=== PATIENT | female | born 1995 | race Hispanic/Latino ===

== ENCOUNTER 2017-02-19 22:57 | Emergency (ER) | payer SELFPAY ==
[2017-02-19] MEDS ORDERED: DELTASONE ONE (23:26)
[2017-02-19] MEDS ORDERED: PEPCID ONE (23:27)
[2017-02-19] MEDS ORDERED: BENADRYL PO ONE (23:27)
[2017-02-19] MEDS ORDERED: BENADRYL IV ONE (23:44)
[2017-02-19] MEDS ORDERED: PEPCID IV ONE (23:44)
[2017-02-19] MEDS ORDERED: NACL 0.9% 1000 ML 1,000 ML IV ONE (23:45)
[2017-02-20] MEDS ORDERED: ZOFRAN ONE
[2017-02-20] MEDS ORDERED: ZOFRAN IV ONE (00:02)
[2017-02-20] MEDS ORDERED: MOTRIN PO ONE (00:12)
--- NOTE | 2017-02-20 00:16 | Emergency Department Report ---
HPI - General Chief Complaint: Extremity Injury, Upper Time Seen by Provider: 02/19/17 23:55 - HPI HPI: The patient's 21-year-old female presents for evaluation of pain to the back of the right hand for the past 2 hours prior to my evaluation. 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 She is employed by [employer]. She states that since the incident she has experienced constant pain to the dorsal aspect of the right hand, burning in quality, 3/10 in severity, worse with touching of the back of the right hand. She also reports associated mild redness to the back of the hand. She denies fever, trauma or puncture wound to the hand, paresthesia, motor deficit in the hand or fingers, inhalation or ingestion of unknown substance, nausea, vomiting, abdominal pain, chest pain, dyspnea, wheezing, rash, headache, confusion. She denies known allergies. ED Past Medical Hx - Past Medical History Hx Asthma: Yes - Surgical History Past Surgical History?: Yes Additional Surgical History: tonsilectomy - Social History Smoking Status: Never Smoker Substance Use Type: None - Medications Home Medications: Home Medications Medication Instructions Recorded Confirmed Last Taken Type Ibuprofen [Motrin] 800 mg PO Q8HR PRN #15 tablet 02/20/17 Unknown Rx diphenhydrAMINE [Benadryl CAP] 50 mg PO Q8HR PRN #30 capsule 02/20/17 Unknown Rx predniSONE [Deltasone] 20 mg PO QDAY #3 tab 02/20/17 Unknown Rx ED Review of Systems ROS: Stated complaint: MEDICAL CLEARANCE Other details as noted in HPI Constitutional: denies: fever ENT: denies: throat or neck pain Respiratory: denies: cough, shortness of breath Cardiovascular: denies: chest pain Endocrine: denies unexplained weight loss or gain Gastrointestinal: denies: abdominal pain, nausea Genitourinary: denies: dysuria Musculoskeletal: reports right hand pain and redness denies: leg swelling Skin: denies: rash Neurological: denies: headache Hematological/Lymphatic: denies: easy bleeding or easy bruising Psych: denies sadness or hopelessness Physical Exam - Physical Exam Vital Signs: Vital Signs 02/19/17 02/20/17 02/20/17 23:27 00:04 00:05 Temperature 98.4 F 98.4 F Pulse Rate 70 65 Respiratory 20 20 Rate Blood Pressure 114/67 Blood Pressure 105/63 [Left] O2 Sat by Pulse 98 100 100 Oximetry Physical Exam: General: well-nourished, well-developed, no acute distress Head: Normocephalic, atraumatic Eyes: normal sclera ENT: Mucous membranes are pink and moist Neck: trachea midline, neck supple, No neck stiffness, no cervical adenopathy Respiratory: Breath sounds equal bilaterally, no wheezing, rales, or rhonchi Cardio: S1 and S2 present, no murmurs, rubs, gallops, capillary refill is brisk Abdomen: Normoactive bowel sounds, soft abdomen, no rigidity, no guarding or rebound tenderness Musc: Dorsal proximal aspect of the right hand 10 to palpation, mild erythema present, but she had a scant present, no swelling, warmth, fluctuance, or sensation or motor deficit in the right hand or digits of the hand. Skin: no hives Neuro: no facial drooping, normal speech Psych: Normal affect ED Course Vital Signs 02/19/17 02/20/17 02/20/17 23:27 00:04 00:05 Temperature 98.4 F 98.4 F Pulse Rate 70 65 Respiratory 20 20 Rate Blood Pressure 114/67 Blood Pressure 105/63 [Left] O2 Sat by Pulse 98 100 100 Oximetry ED Medical Decision Making - Medical Decision Making The patient was seen and examined by myself. The patient is placed on a recreational sports director and continuous pulse ox. On initial evaluation, the patient was found to be in no distress. Evaluation orders were placed. The patient is given 1 L normal saline fluid bolus, and IV Solu-Medrol, Benadryl, and Pepcid. The patient is given a tablet of Motrin for pain. The patient was monitored for 4 hours in the emergency department without any signs of anaphylaxis. The patient was reevaluated and reported that their symptoms were markedly improved. The patient is stable for discharge with outpatient follow-up. The patient is given follow-up and return instructions. The patient expressed understanding and agreed with the plan. The patient is discharged in stable condition. Critical care attestation.: If time is entered above; I have spent that time in minutes in the direct care of this critically ill patient, excluding procedure time. ED Disposition Clinical Impression: Right hand pain Contact dermatitis Qualifiers: Contact dermatitis type: irritant Contact dermatitis trigger: drugs in contact with skin Qualified Code(s): L24.4 - Irritant contact dermatitis due to drugs in contact with skin Allergic reaction to chemical substance Qualifiers: Encounter type: initial encounter Injury intent: accidental or unintentional Qualified Code(s): T65.91XA - Toxic effect of unspecified substance, accidental (unintentional), initial encounter Disposition: DC- TO HOME OR SELFCARE Is pt being admited?: No Does the pt Need Aspirin: No Condition: Stable Instructions: Contact Dermatitis (ED), Allergies (ED) Prescriptions: diphenhydrAMINE [Benadryl CAP] 50 mg PO Q8HR PRN #30 capsule PRN Reason: Allergic Reaction Ibuprofen [Motrin] 800 mg PO Q8HR PRN #15 tablet PRN Reason: Pain predniSONE [Deltasone] 20 mg PO QDAY #3 tab Referrals: [facility] [Outside] - 3-5 Days Time of Disposition: 00:12
[2017-02-20] MEDS ORDERED: NACL 0.9% 500 ML IR ONE (00:22)
[2017-02-20] MEDS ORDERED: NACL 0.9% IR ONE (00:23)
[2017-02-20 01:36] VITALS: BP 105/68
== END 2017-02-20 01:37 | disposition home or self-care (01) ==
LOC: ED 22:57
DX: L23.5 Allergic contact dermatitis due to other chemical products (principal)
CPT/HCPCS: 96361; 96374; 96375; 99283; J1200; J2405; J2930; J7030; J7512